=== PATIENT | female | born 1960 | race Caucasian/White ===

== ENCOUNTER 2019-08-31 | Inpatient (IN) | payer BC | END 2019-08-31 16:51 | disposition home or self-care (01) | DRG 69 | PROVIDERS: ADMIT Hospitalist | CPT/HCPCS: 36415; 70553; 71045; 80048; 80053; 80061; 80306; 80329; 81003; 82550; 82607; 83036; 83520; 84443; 85025; 86780; 93306; 93308; 93880; 99285 ==